=== PATIENT | male | born 1990 | race Hispanic/Latino ===

== ENCOUNTER 2022-02-12 14:08 | Emergency (ER) | payer OTHER, SELFPAY ==
[2022-02-12] MEDS ORDERED: HYDROcodone/Acetaminophen 5/325 mg Tablet ONE (15:04)
== END 2022-02-12 16:46 | disposition home or self-care (01) ==
LOC: ERS 14:08
DX: S16.1XXA Strain of muscle, fascia and tendon at neck level, initial encounter (principal); V89.2XXA Person injured in unspecified motor-vehicle accident, traffic, initial encounter
CPT/HCPCS: 70450; 72125